=== PATIENT | male | born 1945 | race Caucasian/White ===

== ENCOUNTER 2021-03-30 17:33 | Outpatient (CLI) | payer SELFPAY ==
[2021-03-30 18:01] LABS: Basophils # 0.1 10^3/uL (0.0-0.1); Basophils % 0.6 %; Eosinophils # 0.1 10^3/uL (0.0-0.8); Eosinophils % 0.6 %; Hematocrit 42.9 % (42.0-52.0); Lymphocytes # 0.6 10^3/uL (0.8-4.8); Lymphocytes % 6.6 %; Mean Corpuscular HGB Conc 32.6 g/dL (30.0-36.0); Mean Corpuscular Volume 85.8 fl (80-94); Mean Platelet Volume 10.8 fL (7.4-10.4); Monocytes # 0.7 10^3/uL (0.2-0.9); Monocytes % 7.5 %; Neutrophils # 7.28 10^3/uL (1.8-7.7); Nucleated Red Blood Cells % 0 %; Platelet Count 179 10^3/cmm (130-400); Red Cell Distribution Width 13.8 % (12.1-15.1); White Blood Count 8.7 10^3/uL (4.0-10.0)
== END 2021-03-30 17:34 | disposition home or self-care (01) ==
LOC: LAB 17:36
PROVIDERS: Visit Provider Internal Medicine
DX: J96.01 Acute respiratory failure with hypoxia (principal)
CPT/HCPCS: 85025